=== PATIENT | female | born 1945 | race American Indian/Alaskan Native ===

== ENCOUNTER 2021-12-22 18:57 | Emergency (ER) | payer MEDICARE, OTHER ==
[~2021-12-22] VITALS: Ht 154.9 cm; Wt 59.0 kg
[~2021-12-22 18:57] MED LIST: FLEXERIL10 MG PO; NORCO 5-325 TA1 EACH PO; TYLENOL WITH C1 EACH PO
--- OUTSIDE RECORDS SUMMARY | 2021-12-22 18:58 | XMS ---
PreManage Notification: GELACIO VIZCAINO [employer] Events No recent Security Events currently on file CRITERIA MET - PDMP CARE PROVIDERS [facility], Clinic/Center: [facility] PHONE: Unknown Kahlil has no Care Guidelines for this patient. EDerick VISIT COUNT ([address] [facility] [address] [facility] TOTAL 7 NOTE: Visits indicate total known visits. ED/UCC VISIT TRACKING (12 MO.) 12/22/2021 18:[address] [facility] TYPE: Emergency COMPLAINT: - BACK PAIN [facility] DIAGNOSES: - Epigastric pain - Back pain - Other specified bacterial intestinal infections - Abdominal Pain 09/23/2021 16[facility] DIAGNOSES: - Epigastric pain - Abdominal Pain - Elevated blood-pressure reading, without diagnosis of hypertension 09/22/2021 12:52 [facility] OR TYPE: Emergency DIAGNOSES: - Abdominal Pain - Unspecified abdominal pain 04/17/2021 09:07 [facility] OR TYPE: Emergency DIAGNOSES: - Abdominal Pain - Epigastric pain - EMS: Abdominal Pains 02/20/2021 13:52 [facility] OR TYPE: Emergency DIAGNOSES: - Other chronic pain - Abdominal Pain - Unspecified abdominal pain - Abdominal Pains 01/13/2021 13:50 [facility] [place] TYPE: Emergency DIAGNOSES: - Chest Pain - Hypokalemia - Anemia, unspecified - Chest pain, unspecified INPATIENT VISIT TRACKING (12 MO.) No inpatient visits to display in this time frame [email or web address]
[2021-12-22] MEDS ORDERED: ATORVASTATIN CA20 MG PO (23:17)
[2021-12-22] MEDS ORDERED: CLOPIDOGREL75 MG PO (23:18)
[2021-12-22] MEDS ORDERED: FLUOXETINE HCL10 MG PO (23:18)
[2021-12-22] MEDS ORDERED: HYDROCODON-ACE1 EA10 PO (23:35)
== END 2021-12-22 23:56 | disposition home or self-care (01) ==
LOC: ED 18:57
DX: S39.012A Strain of muscle, fascia and tendon of lower back, initial encounter (principal); F17.200 Nicotine dependence, unspecified, uncomplicated; X58.XXXA Exposure to other specified factors, initial encounter; Z79.899 Other long term (current) drug therapy
CPT/HCPCS: 72100; 96372; 99283-25; A9270; J1885; J3360